=== PATIENT | male | born 1950 | race Caucasian/White ===

== ENCOUNTER 2022-09-04 13:59 | Inpatient (IN) | payer MEDICARE, BC ==
[~2022-09-04 13:59] MED LIST: Iopamidol 300 61% 100 ML VIAL FS ONE
[2022-09-04] MEDS ORDERED: Cefepime 2 GM VIAL ONE (16:28)
[2022-09-04] MEDS ORDERED: Vancomycin 1 GM VIAL ONE (16:28)
[2022-09-04 16:30] LABS: #Basophils 0.1 10x3/uL (0.0-0.2); #Eosinphils 0.2 10x3/uL (0.0-0.5); #Monocytes 1.1 10x3/uL (0.0-1.1); %Basophils 0.8 % (0.0-2.0); %Lymphocytes 21.6 % (18.0-47.0); %Monocytes 9.8 % (0.0-10.0); %Neutrophils 65.6 % (40.0-75.0); Hemoglobin 14.4 g/dL (13.5-17.5); Mean Corpuscular HGB CONC 35.4 g/dL (32.0-36.0); Mean Corpuscular Hemoglobin 30.7 pg (27.0-33.0); Mean Corpuscular Volume 86.8 fl (81.2-95.1); Mean Platelet Volume 10.7 fl (7.4-10.4); Platelet Count 304 10x3/uL (150-450); RBC Distribution Width 12.7 % (11.5-14.5); Red Blood Cell (RBC) Count 4.69 10x6/uL (4.32-5.72); White Blood Cell (WBC) Count 10.7 10x3/uL (3.5-10.5)
[2022-09-04 16:43] LABS: ALT (SGPT) 14 U/L (8-55); AST (SGOT) 16 U/L (5-34); Albumin 4.1 g/dL (3.4-4.8); Alkaline Phosphatase 37 U/L (40-110); Anion Gap 17 mmol/L (10-20); BUN (Urea Nitrogen) 18 mg/dL (8.4-25.7); Bilirubin, Total 0.6 mg/dL (0.2-1.2); CK (CPK) 97 U/L (30-200); Calc. Creatinine Clearance 0 mL/min (70-130); Carbon Dioxide 20 mmol/L (23-31); Chloride 106 mmol/L (98-107); Estimated GFR 53; Globulin 3.4 g/dL (2.4-3.5); Glucose 189 mg/dL (83-110); Potassium 3.6 mmol/L (3.5-5.1); Protein, Total 7.5 g/dL (5.8-8.1); Sodium 139 mmol/L (136-145)
[2022-09-04] MEDS ORDERED: VANCOMYCIN 2 GRAM/400 ML BAG 2 GM in Premix Bag 1 BAG IVPB SCH (16:45)
[2022-09-04] MEDS ORDERED: Senokot S 8.6-50 MG TAB PO PRN (20:20)
[2022-09-04] MEDS ORDERED: Calcium Carbonate 500 MG ChewTAB PO PRN (20:20)
[2022-09-04] MEDS ORDERED: Bisacodyl 5 MG TAB PO PRN (20:20)
[2022-09-04] MEDS ORDERED: Ondansetron ODT 4 MG TAB PO PRN (20:20)
[2022-09-04] MEDS ORDERED: Dextrose 5% in Water 1,000 ML IV PRN (20:20)
[2022-09-04] MEDS ORDERED: Dextrose 50% Abboject 50 ML SYRINGE SLOW IVP PRN (20:20)
[2022-09-04] MEDS ORDERED: Acetaminophen 325 MG TAB PO PRN (20:20)
[2022-09-04] MEDS ORDERED: Famotidine 20 MG TAB PO SCH (20:30)
[2022-09-04] MEDS ORDERED: LOVASTATIN 40 MG PO SCH (21:00)
[2022-09-04] MEDS ORDERED: Gabapentin 300 MG CAP PO SCH (22:30)
[2022-09-04] MEDS ORDERED: Nebivolol HCl 5 MG TAB PO SCH (22:30)
[2022-09-04] MEDS ORDERED: Ezetimibe 10 MG TAB PO SCH (22:30)
[2022-09-04] MEDS ORDERED: Dextrose 5%-Lactated Ringers 1,000 ML IV SCH (22:30)
[2022-09-04] MEDS ORDERED: Cyclobenzaprine 10 MG TAB PO SCH (22:30)
[2022-09-04] MEDS ORDERED: Lisinopril 20 MG TAB PO SCH (22:30)
[2022-09-05 04:49] VITALS: BMI 39.1
[2022-09-05 04:53] LABS: #Basophils 0.1 10x3/uL (0.0-0.2); #Eosinphils 0.2 10x3/uL (0.0-0.5); #Monocytes 0.7 10x3/uL (0.0-1.1); #Neutrophils 4.5 10x3/uL (1.5-8.4); %Basophils 0.7 % (0.0-2.0); %Eosinophils 3.2 % (0.0-6.0); %Lymphocytes 26.7 % (18.0-47.0); %Monocytes 9.6 % (0.0-10.0); %Neutrophils 59.5 % (40.0-75.0); Mean Corpuscular HGB CONC 35.4 g/dL (32.0-36.0); Mean Corpuscular Hemoglobin 30.5 pg (27.0-33.0); Mean Corpuscular Volume 86.2 fl (81.2-95.1); Mean Platelet Volume 10.4 fl (7.4-10.4); Platelet Count 261 10x3/uL (150-450); RBC Distribution Width 12.5 % (11.5-14.5); Red Blood Cell (RBC) Count 4.26 10x6/uL (4.32-5.72); White Blood Cell (WBC) Count 7.6 10x3/uL (3.5-10.5)
[2022-09-05] MEDS ORDERED: FLU VACC QS2022-23(65YR UP)/PF 240 MCG/0.7 ML SYRINGE IM ONE (05:00)
[2022-09-05 05:06] LABS: Anion Gap 15 mmol/L (10-20); BUN (Urea Nitrogen) 18 mg/dL (8.4-25.7); Calc. Creatinine Clearance 91 mL/min (70-130); Calcium 9.3 mg/dL (7.8-10.44); Carbon Dioxide 20 mmol/L (23-31); Chloride 106 mmol/L (98-107); Estimated GFR 61; Glucose 186 mg/dL (83-110); Potassium 3.4 mmol/L (3.5-5.1); Sodium 138 mmol/L (136-145)
[2022-09-05] MEDS ORDERED: Cefepime 1 GM in Sodium Chloride 0.9% 100 ML IVPB SCH ×2 (09:00→18:30)
[2022-09-05] MEDS: Nebivolol HCl 5 MG TAB PO SCH ×2 (09:06→21:09)
[2022-09-05] MEDS: Hydrochlorothiazide 25 MG TAB PO SCH (09:06)
[2022-09-05] MEDS: Fenofibrate Nanocrystallized 145 MG TAB PO SCH (09:06)
[2022-09-05] MEDS: Lisinopril 20 MG TAB PO SCH ×2 (09:07→21:10)
[2022-09-05] MEDS: Famotidine 20 MG TAB PO SCH ×2 (09:07→21:09)
[2022-09-05] MEDS ORDERED: Morphine 2 MG/ML VIAL SLOW IVP PRN (12:56)
[2022-09-05] MEDS: HYDROcodone/Acetaminophen 10/325 mg Tablet PO PRN ×2 (13:07→21:30)
[2022-09-05] MEDS ORDERED: Bupivacaine/Epinephrine 0.25% 30 ML VIAL ONE (14:24)
[2022-09-05] MEDS ORDERED: Lidocaine 1% (PF) 30 ML VIAL ONE (14:24)
[2022-09-05 16:06] LABS: SARS-CoV-2 NAA Rapid Test Not Detected (NotDetected)
[2022-09-05] MEDS ORDERED: VANCOMYCIN 1.75 GM/350 ML BAG 1.75 GM in Premix Bag 1 BAG IVPB SCH ×2 (17:00→21:00)
[2022-09-05] MEDS ORDERED: PROPOFOL 20 ML ONE (17:42)
[2022-09-05] MEDS ORDERED: Fentanyl 100 MCG/2 ML VIAL ONE ×3 (17:42→19:51)
[2022-09-05] MEDS ORDERED: Lidocaine 1% PF 5 ML VIAL ONE (17:43)
[2022-09-05] MEDS ORDERED: Ondansetron PF 4 MG/2 ML Vial ONE (17:43)
[2022-09-05] MEDS ORDERED: Dexamethasone 4 mg/ml Vial ONE (17:43)
[2022-09-05] MEDS ORDERED: Vancomycin 1 GM VIAL ONE (18:31)
[2022-09-05] MEDS ORDERED: Glycopyrrolate 0.2 MG/ML 5 ML SYRINGE ONE (19:07)
[2022-09-05] MEDS ORDERED: Promethazine HCl 25 MG/ML VIAL IM PRN (19:25)
[2022-09-05] MEDS ORDERED: Ondansetron HCl/PF 4 MG/2 ML Vial IVP PRN (19:25)
[2022-09-05] MEDS ORDERED: HYDROmorphone 2 MG/ML VIAL SLOW IVP PRN (19:25)
[2022-09-05] MEDS ORDERED: Meperidine HCl/PF 25 MG/ML VIAL SLOW IVP PRN (19:25)
[2022-09-05] MEDS: Ezetimibe 10 MG TAB PO SCH (21:10)
[2022-09-05] MEDS: Gabapentin 300 MG CAP PO SCH (21:10)
[2022-09-05] MEDS: Cyclobenzaprine 10 MG TAB PO SCH (21:10)
[2022-09-06] MEDS: HYDROcodone/Acetaminophen 10/325 mg Tablet PO PRN ×4 (01:44→18:54)
[2022-09-06] MEDS: HumaLOG 300 UNITS/3 ML VIAL SC PRN ×3 (06:30→21:52)
[2022-09-06] MEDS: Nebivolol HCl 5 MG TAB PO SCH ×2 (11:03→21:51)
[2022-09-06] MEDS: Famotidine 20 MG TAB PO SCH ×2 (11:05→21:51)
[2022-09-06] MEDS: Hydrochlorothiazide 25 MG TAB PO SCH (11:06)
[2022-09-06] MEDS: Lisinopril 20 MG TAB PO SCH ×2 (11:06→21:51)
[2022-09-06] MEDS: Cefepime 1 GM in Sodium Chloride 0.9% 100 ML IVPB SCH ×2 (11:07→19:05)
[2022-09-06] MEDS: VANCOMYCIN 1.75 GM/350 ML BAG 1.75 GM in Premix Bag 1 BAG IVPB SCH (11:07)
[2022-09-06] MEDS: Fenofibrate Nanocrystallized 145 MG TAB PO SCH (13:10)
[2022-09-06] MEDS ORDERED: VANCOMYCIN 1.75 GM/350 ML BAG 1.75 GM in Premix Bag 1 BAG IVPB SCH (18:00)
[2022-09-06] MEDS ORDERED: Lantus 1000 UNITS/10 ML VIAL SC SCH (21:00)
[2022-09-06] MEDS: Gabapentin 300 MG CAP PO SCH (21:50)
[2022-09-06] MEDS: Cyclobenzaprine 10 MG TAB PO SCH (21:50)
[2022-09-06] MEDS: Ezetimibe 10 MG TAB PO SCH (21:51)
[2022-09-07 08:45] LABS: Vancomycin, Trough 10.3 ug/mL
[2022-09-07 08:48] LABS: #Basophils 0.1 10x3/uL (0.0-0.2); #Eosinphils 0.4 10x3/uL (0.0-0.5); #Monocytes 0.7 10x3/uL (0.0-1.1); %Basophils 0.7 % (0.0-2.0); %Eosinophils 4.1 % (0.0-6.0); %Lymphocytes 26.2 % (18.0-47.0); %Neutrophils 61.6 % (40.0-75.0); Hemoglobin 14.1 g/dL (13.5-17.5); Mean Corpuscular HGB CONC 34.6 g/dL (32.0-36.0); Mean Corpuscular Hemoglobin 30.2 pg (27.0-33.0); Mean Corpuscular Volume 87.2 fl (81.2-95.1); Mean Platelet Volume 10.2 fl (7.4-10.4); Platelet Count 347 10x3/uL (150-450); RBC Distribution Width 12.3 % (11.5-14.5); Red Blood Cell (RBC) Count 4.67 10x6/uL (4.32-5.72); White Blood Cell (WBC) Count 9.7 10x3/uL (3.5-10.5)
[2022-09-07 08:52] LABS: Anion Gap 17 mmol/L (10-20); BUN (Urea Nitrogen) 16 mg/dL (8.4-25.7); Calc. Creatinine Clearance 87 mL/min (70-130); Carbon Dioxide 22 mmol/L (23-31); Chloride 104 mmol/L (98-107); Estimated GFR 58; Glucose 132 mg/dL (83-110); Potassium 3.9 mmol/L (3.5-5.1); Sodium 139 mmol/L (136-145)
[2022-09-07] MEDS: Cefepime 1 GM in Sodium Chloride 0.9% 100 ML IVPB SCH (11:31)
[2022-09-07] MEDS: Hydrochlorothiazide 25 MG TAB PO SCH (11:32)
[2022-09-07] MEDS: Lisinopril 20 MG TAB PO SCH (11:33)
[2022-09-07] MEDS: Famotidine 20 MG TAB PO SCH (11:33)
[2022-09-07] MEDS: Fenofibrate Nanocrystallized 145 MG TAB PO SCH (11:34)
[2022-09-07] MEDS: Nebivolol HCl 5 MG TAB PO SCH (11:34)
[2022-09-07] MEDS: VANCOMYCIN 1.75 GM/350 ML BAG 1.75 GM in Premix Bag 1 BAG IVPB SCH (12:42)
[2022-09-07 17:58] VITALS: BP 183/79; TEMP 97.5
[2022-10-04 16:14] LABS: Fungus Culture Final report (.)
== END 2022-09-07 18:23 | disposition home or self-care (01) | DRG 40 ==
LOC: CSHERS 13:59 → CSHTELE 20:43 → OBSVTOIN 09-05 14:15
PROVIDERS: ADMIT Student in an Organized Health Care Education/Training Program; ATTEND Internal Medicine
PROC: 0JPT0MZ Removal of Stimulator Generator from Trunk Subcutaneous Tissue and Fascia, Open Approach (ICD-10-PCS; principal; 2022-09-05)
PROC: 01PY3MZ Removal of Neurostimulator Lead from Peripheral Nerve, Percutaneous Approach (ICD-10-PCS; 2022-09-05)
DX: T85.733A Infection and inflammatory reaction due to implanted electronic neurostimulator of spinal cord, electrode (lead), initial encounter (principal); G06.1 Intraspinal abscess and granuloma; N17.9 Acute kidney failure, unspecified; T81.31XA Disruption of external operation (surgical) wound, not elsewhere classified, initial encounter; E11.9 Type 2 diabetes mellitus without complications; I10 Essential (primary) hypertension; E78.1 Pure hyperglyceridemia; E78.5 Hyperlipidemia, unspecified; Z96.651 Presence of right artificial knee joint; Z96.612 Presence of left artificial shoulder joint; Z82.49 Family history of ischemic heart disease and other diseases of the circulatory system; Z98.890 Other specified postprocedural states; Z87.891 Personal history of nicotine dependence; Z79.82 Long term (current) use of aspirin; Z79.84 Long term (current) use of oral hypoglycemic drugs; Z79.4 Long term (current) use of insulin; Z79.899 Other long term (current) drug therapy; Z20.822 Contact with and (suspected) exposure to COVID-19; Y83.8 Other surgical procedures as the cause of abnormal reaction of the patient, or of later complication, without mention of misadventure at the time of the procedure; Z79.02 Long term (current) use of antithrombotics/antiplatelets
CPT/HCPCS: 36415; 36416; 74177; 80048; 80053; 80202; 82550; 82565; 83605; 85025; 87040; 87070; 87102; 87116; 87205; 87206; 96365; 96366; 96367; C1776; C1889; G0378; J0692; J1100; J1815; J2001; J2405; J2704; J3010; J3370; J3490; Q9967; U0002